=== PATIENT | male | born 1990 | race African-American/Black ===

== ENCOUNTER 2017-04-11 15:41 | Emergency (ER) | payer SELFPAY ==
[2017-04-11 15:44] VITALS: BP 144/97; BMI 35.5
--- NOTE | 2017-04-11 16:38 | DR.GENAD ---
HPI - PCP Primary Care Physician: MAYRA - HPI Comment HPI Comment: RECTAL PAIN AND BLEEDING TIMES 3 DAYS. HISTORY OF HEMORRHIOD. NO FEVER. - Complaint/Symptoms Chief Complaint:: PT. C/O HEMORRHOID PAIN. PT. SEEN DR. NUNEZ 2 MONTHS AGO FOR PROBLEM AND WAS MEDICATED AND TREATED. PT. BEGAN HAVING PAIN AT THE BEGINNING OF THE WEEK. - Nurses notes reviewed Nurses Notes Review: Yes - Source History Provided: Patient - Mode of Arrival Mode of Arrival: Ambulatory - Timing Onset of Chief Complaint: 04/08/17 Came on: Suddenly - Duration Duration: Constant Duration: Days - Severity Severity: Moderate PMH - PMH Past Medical History: Yes Past Medical History: Asthma Past Medical History Comment: HEMORRHOIDS Past Surgical History: No Surgical History: No History - Family History History of Family Medical Conditions: Yes Family Medical History: Diabetes Mellitus, Hypertension - Social History Does patient currently use any type of tobacco product: Yes Have you used tobacco products in the last 12 months: Yes Type of Tobacco Use: Cigarettes Does any household member use tobacco: Yes Alcohol Use: Occasionally Do you use any recreational Drugs:: Yes (MARIJUANA) Lives With: Family Lives Where: Home - infectious screening In the last 2 months have you had wt loss of >10#?: NO Have you had fever, night sweats or hemotysis?: No Have you traveled outside the country in the last 6 months?: No Isolation: Standard ROS - Review of Systems Constitutional: No Symptoms Reported Eyes: No Symptoms Reported ENTM: No Symptoms Reported Respiratoy: No Symptoms Reported Cardiovascular: No Symptoms Reported Gastrointestinal/Abdominal: Abdominal Pain, Other (RECTAL HEMORRHOID BLEEDING.) Genitourinary: Bleeding (HEMORRHOID) Neurological: No Symptoms Reported Musculoskeletal: No Symptoms Reported Integumentary: No Symptoms Reported Hematologic/Lymphatic: No Symptoms Reported Endocrine: No Symptoms Reported All Other Systems: Reviewed and Negative PE - Vital Signs Vitals: Temperature 98 F Pulse Rate 106 Respiratory Rate 18 Blood Pressure [Left Arm] 136/88 Blood Pressure 144/97 O2 Sat by Pulse Oximetry 97 - General Limitations: No Limitations General Appearance: Alert - Head Head Exam: Normal Inspection - Eyes Eye exam: Normal Appearance - ENT ENT Exam: Normal External Ear Exam External Ear Exam: Normal External Inspection TM/Canal Exam: Bilateral Normal Nose Exam: Normal Nose Exam Mouth Exam: Normal Inspection Throat Exam: Normal Inspection - Neck Neck Exam: Normal Inspection - Chest Chest Inspection: Symmetric Chest Wall Rise - Respiratory Respiratory Exam: Normal Lung Sounds Bilat Respiratory Exam: Bilateral Clear to Auscultation - Cardiovascular Cardiovascular Exam: Regular Rate, Normal Rhythm, Normal Heart Sounds - Abdominal Exam Abdominal Exam: Normal Bowel Sounds, Soft, Other (NO ACTIVE RECTAL BLEED NOTED. NOSIGNIFICANT EXTERNAL HEMORRHOID NOTED.). negative: Tenderness - Extremities Extremities Exam: Normal Inspection - Back Back Exam: Normal Inspection - Neurologic Neurological Exam: Alert, Oriented X3 - Psychiatric Psychiatric Exam: Anxious - Skin Skin Exam: Normal Color MDM - Differential Diagnosis Differential Diagnosis: HEMORRHOID/INTERNAL, RECTAL BLEED, RECTAL PAIN. Course - Treatment Treatment: SEE ORDERS - Education/Counseling Education/Counseling: Patient, Education Educated On: Treatment, Diagnosis, Needs for Follow Up - Diagnosis Discharge Problem: Hemorrhoid - Discharge Plan Disposition: 01 HOME, SELF-CARE Condition: Stable Prescriptions: Acetaminophen with Codeine [Tylenol/Codeine #3 300-30 mg] 1 tab PO Q4-6H PRN # 15 tab PRN Reason: Pain Hydrocortisone Supp 25 mg [Anucort-Hc Supp] 25 mg RECTAL BID PRN #24 supp PRN Reason: Hemmorhoid Itching/Discomfort - Follow ups/Referrals Follow ups/Referrals: JAY NUNEZ [Primary Care Provider] - 1 day - Instructions Instructions: Hemorrhoids, [id number] Additional Instructions: RETURN TO ED IF WORSE.
== END 2017-04-11 16:44 | disposition home or self-care (01) ==
LOC: ER 15:54
DX: K64.8 Other hemorrhoids (principal)
CPT/HCPCS: 99281

== ENCOUNTER 2017-06-13 04:02 | Emergency (ER) | payer OTHER ==
[2017-06-13 04:18] VITALS: BP 143/90; BMI 33.9
--- NOTE | 2017-06-13 04:31 | DR.GENAD ---
HPI - HPI Comment HPI Comment: HISTORY BELOW. - Complaint/Symptoms Chief Complaint Doctors Comments: NECK PAIN. MUSCLE IN NECK AND SHOULDER ARE HURTING. WOKE UP FEW DAYS AGO WITH MUSCLE TENSENESS IN NECK. PROGRESSIVELY WORSE SINCE. MEDS TAKEN SO FAR NOT HELPING. NOT ABLE TO SLEEP TONIGHT. Chief Complaint:: PT STATES THAT HE HAS BEEN HAVING CRAMPS IN HIS SHOULDER AND NECK FOR ABOUT 6 DAYS. STATES HE CANNOT SLEEP. Self Treatment fo Chief Complaint: MUSCLE RUBS, IBUPROFEN - Nurses notes reviewed Nurses Notes Review: Yes - Source History Provided: Patient - Mode of Arrival Mode of Arrival: Ambulatory - Timing Onset of Chief Complaint: 06/07/17 Came on: Suddenly - Duration Duration: Constant Duration: Days - Severity Severity: Moderate PMH - PMH Past Medical History: Yes Past Medical History: Asthma, Hypertension Past Surgical History: Yes Surgical History: No History, Abdominal Surgery, Ortho Surgery - Family History History of Family Medical Conditions: Yes Family Medical History: Diabetes Mellitus, [place], Hypertension - Social History Do you use any recreational Drugs:: Yes (MARIJUANA) - infectious screening Have you traveled outside the country in the last 6 months?: No ROS - Review of Systems Constitutional: No Symptoms Reported Eyes: No Symptoms Reported ENTM: No Symptoms Reported Respiratoy: No Symptoms Reported Cardiovascular: No Symptoms Reported Gastrointestinal/Abdominal: No Symptoms Reported Genitourinary: No Symptoms Reported Neurological: No Symptoms Reported Musculoskeletal: Muscle Pain, Muscle Stiffness, Neck Pain, Shoulder Integumentary: No Symptoms Reported Hematologic/Lymphatic: No Symptoms Reported Endocrine: No Symptoms Reported All Other Systems: Reviewed and Negative PE - Vital Signs Vitals: Temperature 97.7 F Pulse Rate 75 Respiratory Rate 18 Blood Pressure [Left Arm] 136/88 Blood Pressure 143/90 O2 Sat by Pulse Oximetry 98 - General Limitations: No Limitations General Appearance: Alert - Head Head Exam: Normal Inspection - Eyes Eye exam: Normal Appearance - ENT ENT Exam: Normal External Ear Exam External Ear Exam: Normal External Inspection TM/Canal Exam: Bilateral Normal Nose Exam: Normal Nose Exam Mouth Exam: Normal Inspection Throat Exam: Normal Inspection - Neck Neck Exam: Normal Inspection - Respiratory Respiratory Exam: Normal Lung Sounds Bilat Respiratory Exam: Bilateral Clear to Auscultation - Cardiovascular Cardiovascular Exam: Regular Rate, Normal Rhythm, Normal Heart Sounds - Abdominal Exam Abdominal Exam: Normal Bowel Sounds, Soft. negative: Tenderness - Extremities Extremities Exam: Normal Inspection - Back Back Exam: Paraspinal Tenderness (NECK) - Neurologic Neurological Exam: Alert, Oriented X3, CN II-XII Intact, Normal Gait, Reflexes Normal. negative: Motor Sensory Deficit - Psychiatric Psychiatric Exam: Normal Affect, Normal Mood - Skin Skin Exam: Normal Color MDM - Differential Diagnosis Differential Diagnosis: TORTICOLIS, STRAIN NECK MUSCLES, SPRAIN NECK Course - Treatment Treatment: SEE ORDERS. IM MEDS IN ED. PAIN IMPROVING. - Education/Counseling Education/Counseling: Patient, Education Educated On: Diagnosis, Needs for Follow Up ROR - XRAY XRAY Interpreted by: Radiologist XRAY Findings: REPORT DISCUSS WITH PATIENT. - Diagnosis Discharge Problem: Neck pain, Cervical strain, acute - Discharge Plan Condition: Stable Prescriptions: Cyclobenzaprine HCl [FLEXERIL 10 MG *] 10 mg PO TID #20 tab Ibuprofen [MOTRIN TAB 800 MG *] 800 mg PO Q8H PRN #20 tab PRN Reason: Pain/Inflammation Methylprednisolone Dosepak 4Mg [MEDROL DOSEPAK (4 mg tab x 21)] 1 dona PO ONCE # 1 dona - Follow ups/Referrals Follow ups/Referrals: JAY NUNEZ [Primary Care Provider] - 3 days - Instructions Instructions: Cervical Strain and Sprain With Rehab-SportsMed, Acute Torticollis Additional Instructions: RETURN TO ED IF WORSE.
[2017-06-13] MEDS ORDERED: TORADOL 60 MG VIAL IM ONE (04:33)
[2017-06-13] MEDS ORDERED: NORFLEX INJ IM ONE (04:33)
[2017-06-13] MEDS ORDERED: NORFLEX INJ ONE (04:38)
[2017-06-13] MEDS ORDERED: TORADOL 60 MG VIAL ONE (04:38)
--- NOTE | 2017-06-13 05:14 | RAD ---
Four views of the cervical spine Indication: Neck pain without trauma Findings: Examination is significantly limited given motion artifact on both lateral projections. The atlantoaxial joint is symmetric. There is loss of normal cervical lordosis; however there is no defi nite spondylolisthesis or cortical disruption identified. No prevertebral soft tissue swelling. There is multilevel spondylosis within the cervical spine. Impression: Limited examination secondary to motion artifact on lateral projections demonstrates no definite evid ence of fracture spondylolisthesis or prevertebral soft tissue swelling. Mild multilevel spondylosis. Reported By:
== END 2017-06-13 05:30 | disposition home or self-care (01) ==
LOC: ER 04:02
DX: S13.4XXA Sprain of ligaments of cervical spine, initial encounter (principal); M54.2 Cervicalgia; Y33.XXXA Other specified events, undetermined intent, initial encounter; Y92.9 Unspecified place or not applicable
CPT/HCPCS: 72040; 96372; 99282; 99283; J1885; J2360

== ENCOUNTER 2017-10-12 17:11 | Emergency (ER) | payer OTHER ==
[2017-10-12 17:15] VITALS: BP 129/88; BMI 34.7
--- NOTE | 2017-10-12 17:40 | DR.GENAD ---
HPI - PCP Primary Care Physician: nunez - Complaint/Symptoms Chief Complaint Doctors Comments: patient presents with flu like symptoms for two days. His significant other had the flu two weeks ago.. Patient states that he feels "lazy", weak, headache just does not feel well. He admits to a low grade fever. Chief Complaint:: past two days patient stated his throat hurst,fever,body aches and fever and weak - Source History Provided: Patient - Mode of Arrival Mode of Arrival: Ambulatory - Timing Onset of Chief Complaint: 10/10/17 PMH - PMH Past Medical History: Yes Past Medical History: Asthma, Hypertension Past Surgical History: Yes Surgical History: No History, Abdominal Surgery, Ortho Surgery - Family History History of Family Medical Conditions: Yes Family Medical History: Diabetes Mellitus, [place], Hypertension - Social History Does patient currently use any type of tobacco product: No Have you used tobacco products in the last 12 months: No Type of Tobacco Use: None How many years tobacco product used: 10 Does any household member use tobacco: No Alcohol Use: Rarely Do you use any recreational Drugs:: No Lives With: Family Lives Where: Home - infectious screening In the last 2 months have you had wt loss of >10#?: NO Have you had fever, night sweats or hemotysis?: No Have you traveled outside the country in the last 6 months?: No Isolation: Standard ROS - Review of Systems Eyes: No Symptoms Reported ENTM: No Symptoms Reported Respiratoy: No Symptoms Reported Cardiovascular: No Symptoms Reported Gastrointestinal/Abdominal: No Symptoms Reported Genitourinary: No Symptoms Reported Neurological: No Symptoms Reported Musculoskeletal: No Symptoms Reported Integumentary: No Symptoms Reported Hematologic/Lymphatic: No Symptoms Reported Endocrine: No Symptoms Reported Psychiatric: No Symptoms Reported All Other Systems: Reviewed and Negative PE - Vital Signs Vitals: Temperature 101.0 F Pulse Rate 76 Respiratory Rate 18 Blood Pressure [Left Arm] 136/88 Blood Pressure 129/88 O2 Sat by Pulse Oximetry 97 - General Limitations: No Limitations General Appearance: Alert, In No Apparent Distress - Head Head Exam: Normal Inspection, Atraumatic - Eyes Eye exam: Normal Appearance, PERRL, EOMI - ENT ENT Exam: Normal Exam External Ear Exam: Normal External Inspection TM/Canal Exam: Bilateral Normal Nose Exam: Normal Nose Exam Mouth Exam: Normal Inspection Throat Exam: Normal Inspection - Neck Neck Exam: Normal Inspection, Full ROM - Chest Chest Inspection: Normal Inspection, Symmetric Chest Wall Rise - Respiratory Respiratory Exam: Normal Lung Sounds Bilat Respiratory Exam: Bilateral Clear to Auscultation - Cardiovascular Cardiovascular Exam: Regular Rate, Normal Rhythm - Abdominal Exam Abdominal Exam: Normal Inspection, Normal Bowel Sounds Abdominal Tenderness: negative: RUQ, RLQ, LUQ, LLQ, Epigastrium, Suprapubic, Diffuse, Mild, Moderate, Severe, Other - Extremities Extremities Exam: Normal Inspection, Full ROM - Back Back Exam: Normal Inspection, Full ROM - Neurologic Neurological Exam: Alert, Oriented X3, CN II-XII Intact - Psychiatric Psychiatric Exam: Normal Affect, Normal Mood - Skin Skin Exam: Warm, Dry, Intact Course - Reevaluation 1st: Unchanged ROR - Labs Reviewed Laboratory Results Reviewed?: Yes (Influenza negative, strep negative) Laboratory: Influenza Type A (PCR) Negative (NEGATIVE) 10/12/17 17:30 Influenza Type B (PCR) Negative (NEGATIVE) 10/12/17 17:30 Streptococcus Screen Negative (NEGATIVE) 10/12/17 17:30 - Diagnosis Discharge Problem: Influenza-like symptoms - Discharge Plan Condition: Stable - Follow ups/Referrals Follow ups/Referrals: JAY NUNEZ [Primary Care Provider] - 3 days - Instructions
[2017-10-12] MEDS ORDERED: MOTRIN TAB 800 MG PO ONE ×2 (17:41→17:47)
== END 2017-10-12 18:58 | disposition home or self-care (01) ==
LOC: ER 17:19
DX: J11.1 Influenza due to unidentified influenza virus with other respiratory manifestations (principal)
CPT/HCPCS: 87070; 87502; 87880; 99282

== ENCOUNTER 2017-12-14 00:32 | Emergency (ER) | payer OTHER ==
[2017-12-14 00:42] VITALS: BP 152/96; BMI 37.3
--- NOTE | 2017-12-14 01:11 | DR.GENAD ---
HPI - PCP Primary Care Physician: nfd - Complaint/Symptoms Chief Complaint Doctors Comments: Patient states that he saw his primary care physician today was given medication for symptoms, antibiotics and decongestant. Patient reports that he can not breath. He denies a history of asthma. Chief Complaint:: sick, difficulty breathing - Source History Provided: Patient - Mode of Arrival Mode of Arrival: Ambulatory - Timing Onset of Chief Complaint: 12/14/17 PMH - PMH Past Medical History: Yes Past Medical History: Asthma, Hypertension Past Surgical History: Yes Surgical History: No History, Ortho Surgery - Family History History of Family Medical Conditions: Yes Family Medical History: Diabetes Mellitus, [place], Hypertension - Social History Does patient currently use any type of tobacco product: No Have you used tobacco products in the last 12 months: No Type of Tobacco Use: Cigarettes Does any household member use tobacco: Yes Alcohol Use: Rarely Do you use any recreational Drugs:: No Lives With: Family Lives Where: Home - infectious screening In the last 2 months have you had wt loss of >10#?: NO Have you had fever, night sweats or hemotysis?: No Have you traveled outside the country in the last 6 months?: No Isolation: Standard ROS - Review of Systems Eyes: No Symptoms Reported ENTM: No Symptoms Reported Respiratoy: No Symptoms Reported Cardiovascular: No Symptoms Reported Gastrointestinal/Abdominal: No Symptoms Reported Genitourinary: No Symptoms Reported Neurological: No Symptoms Reported Musculoskeletal: No Symptoms Reported Integumentary: No Symptoms Reported Hematologic/Lymphatic: No Symptoms Reported Endocrine: No Symptoms Reported Psychiatric: No Symptoms Reported All Other Systems: Reviewed and Negative PE - Vital Signs Vitals: Temperature 100.2 F Pulse Rate 111 Respiratory Rate 24 Blood Pressure [Left Arm] 136/88 Blood Pressure 152/96 O2 Sat by Pulse Oximetry 98 - General Limitations: No Limitations General Appearance: Alert, In No Apparent Distress - Head Head Exam: Normal Inspection, Atraumatic - Eyes Eye exam: Normal Appearance, PERRL, EOMI - ENT ENT Exam: Normal Exam External Ear Exam: Normal External Inspection TM/Canal Exam: Bilateral Normal Nose Exam: Other (congestion) Mouth Exam: Normal Inspection Throat Exam: Normal Inspection - Neck Neck Exam: Normal Inspection, Full ROM - Chest Chest Inspection: Normal Inspection, Symmetric Chest Wall Rise - Respiratory Respiratory Exam: Normal Lung Sounds Bilat Respiratory Exam: Bilateral Clear to Auscultation - Cardiovascular Cardiovascular Exam: Regular Rate, Normal Rhythm - Abdominal Exam Abdominal Exam: Normal Inspection, Normal Bowel Sounds Abdominal Tenderness: negative: RUQ, RLQ, LUQ, LLQ, Epigastrium, Suprapubic, Diffuse, Mild, Moderate, Severe, Other - Extremities Extremities Exam: Normal Inspection, Full ROM - Back Back Exam: Normal Inspection, Full ROM - Neurologic Neurological Exam: Alert, Oriented X3, CN II-XII Intact - Psychiatric Psychiatric Exam: Normal Affect - Skin Skin Exam: Warm, Dry, Intact - Discharge Plan Condition: Stable - Follow ups/Referrals Follow ups/Referrals: NFD,None [Primary Care Provider] - 3 days - Instructions
[2017-12-14] MEDS ORDERED: TORADOL 30 MG VIAL IVP ONE (01:12)
[2017-12-14] MEDS ORDERED: TORADOL 30 MG VIAL ONE (01:14)
--- NOTE | 2017-12-14 01:28 | RAD ---
AP chest Indication: Cough with fever Comparison: 03/19/2015 Findings: The trachea is midline. The heart size is at the upper limits of normal given AP technique. No focal airspace opacity, pleural effusion or pneumothorax. No acute osseous abnormality. Impression: No acute cardiopulmonary abnormality. Reported By:
[2017-12-14 01:33] LABS: BASOPHILS # (AUTO) 0.1 X10^3/uL (0.0-0.1); EOSINOPHILS # (AUTO) 0.2 x10^3/uL (0.0-0.2); EOSINOPHILS % (AUTO) 2.1 % (0.9-2.9); HEMOGLOBIN 15.1 g/dL (13.5-18.0); LYMPHOCYTES # (AUTO) 1.5 X10^3/uL (1.3-2.9); LYMPHOCYTES % (AUTO) 15.7 % (21.0-51.0); MEAN CORPUSCULAR HEMOGLOBIN 27.9 pg (27.0-34.0); MEAN CORPUSCULAR HGB CONC 33.7 g/dL (33.0-35.0); MEAN CORPUSCULAR VOLUME 82.8 fL (80.0-100.0); MEAN PLATELET VOLUME 11.3 fL (7.4-11.0); MONOCYTES % (AUTO) 10.7 % (0.0-13.0); NEUTROPHILS # (AUTO) 6.9 x10^3/uL (2.2-4.8); NEUTROPHILS % (AUTO) 70.5 % (42.0-75.0); PLATELET COUNT 104 X10^3/uL (150.0-450.0); RED BLOOD COUNT 5.43 X10^6/uL (4.7-6.0); RED CELL DISTRIBUTION WIDTH 14.9 % (11.6-16.5); WHITE BLOOD COUNT 9.7 X10^3/uL (3.6-10.0)
[2017-12-14 01:35] LABS: BLOOD UREA NITROGEN 18 mg/dL (7-18); CALCIUM 8.1 mg/dL (8.5-10.1); CARBON DIOXIDE 26.9 mmol/L (21-32); CHLORIDE 105 mmol/L (98-107); COR NA(FOR HYPERGLY) 142 mmol/L (136-145); CREATININE 1.38 mg/dL (0.70-1.30); SODIUM 142 mmol/L (136-145); eGFR BLACK RACES > 60 (>60); eGFR NON BLACK RACES > 60 (>60)
== END 2017-12-14 02:30 | disposition home or self-care (01) ==
LOC: ER 00:32
DX: J06.9 Acute upper respiratory infection, unspecified (principal)
CPT/HCPCS: 36415; 71045; 80048; 85025; 87502; 87651; 96374; 99283; A4222; J1885